=== PATIENT | male | born 1945 | race Caucasian/White ===

== ENCOUNTER 2017-12-08 06:36 | Day surgery (SDC) | payer OTHER, MEDICARE ==
--- NOTE | 2017-11-09 11:30 | HP ---
DATE OF ADMISSION: 12/03/2017 DATE OF DICTATION: 10/12/2017 DATE OF SURGERY: 10/25/2018 BRIEF HISTORY: This is a 72-year-old gentleman with a known right inguinal hernia. He has had this quite some time, and over this time in course the hernia has gotten larger, and now he has a mass in his right groin. The mass is occasionally tender. He wishes to have this hernia repaired. He has had no nausea, no vomiting, no change in bowel habits. PAST MEDICAL HISTORY: Significant for peptic ulcer disease, coronary artery disease, hypertension, hypercholesterolemia, eye disease, and depression/anxiety disorder. PAST SURGICAL HISTORY: Patient has had pins placed in the right forearm in the 50s. ALLERGIES: None. MEDICATION: Crestor, Centrum, aspirin, metoprolol, ramipril. SOCIAL HISTORY: Patient does not smoke nor drink. PHYSICAL EXAMINATION: Lungs: Clear. Heart: Regular rhythm. Abdomen: Soft. Nontender. Nondistended. He has a moderate to large right inguinal hernia. It is reducible in the supine position. The right scrotum and testicle is within normal limits. No obvious hernia noted on the left, however fair amount of laxity noted. IMPRESSION/PLAN: Right inguinal hernia, left floor laxity, cannot rule out left inguinal hernia: This is a 72-year-old gentleman who had a bout of severe sciatica and following this bout, he developed pain in the right groin. This brought his attention to the hernia, and he has had this for quite some time now. The hernia is fairly large and has gotten more symptomatic, and therefore he wished to have this repaired. Patient is slowly recovering from his sciatica. At this point, we have discussed the pros and cons of various surgical approaches, and the patient will be scheduled for a laparoscopic right inguinal hernia repair with mesh. At the time of laparoscopy, due to the fair amount of laxity in the left groin, the left groin will be examined, and if a small hernia is noted, will be repaired in the same setting. If no hernia is seen, a piece of mesh will be left in direct middle space for reinforcement. The indications, alternatives, complications of procedure discussed. Questions answered. Will plan to obtain written consent on the day of surgery. MARK BENSON M.D. [id number] cc: Roly Elizabeth
[2017-12-06 17:00] VITALS: BMI 23.5
[2017-12-08] MEDS ORDERED: LIDOCAINE HCL 2% 100 MG/5 ML DISP.SYRIN ONE (07:05)
[2017-12-08] MEDS ORDERED: ROCURONIUM BROMIDE 50 MG/5 ML VIAL ONE (07:05)
[2017-12-08] MEDS ORDERED: ONDANSETRON 4 MG/2 ML VIAL ONE (07:05)
[2017-12-08] MEDS ORDERED: fentaNYL CITRATE 250 MCG/5 ML VIAL ONE (07:05)
[2017-12-08] MEDS ORDERED: MIDAZOLAM HCL 2 MG/2 ML SINGLE DOSE VIAL ONE (07:05)
[2017-12-08] MEDS ORDERED: SUCCINYLCHOLINE CHLORIDE 200 MG/10 ML VIAL ONE (07:05)
[2017-12-08] MEDS ORDERED: PROPOFOL 20 ML ONE (07:05)
[2017-12-08] MEDS ORDERED: DEXAMETHASONE SOD PHOSPHATE 4 MG/1 ML VIAL ONE (07:05)
[2017-12-08] MEDS ORDERED: TAMSULOSIN HCL 0.4 MG CAP.ER.24H (FP) ONE (07:19)
[2017-12-08] MEDS ORDERED: ceFAZolin SODIUM 1 GM VIAL ONE ×2 (07:25→08:13)
[2017-12-08] MEDS ORDERED: ceFAZolin SODIUM 1 GM VIAL IVPB ONE (08:04)
[2017-12-08] MEDS ORDERED: GLYCOPYRROLATE 0.2 MG/1 ML VIAL ONE (08:49)
[2017-12-08] MEDS ORDERED: NEOSTIGMINE METHYLSULFATE 0.5 MG/ML - 10 ML MDV ONE (08:49)
[2017-12-08] MEDS ORDERED: ONDANSETRON 4 MG/2 ML VIAL IVPUSH PRN (09:08)
[2017-12-08] MEDS ORDERED: oxyCODONE HCL 5 MG TABLET PO PRN ×2 (09:08)
[2017-12-08] MEDS ORDERED: LACTATED RINGERS SOLUTION 1,000 ML IV SCH (09:15)
[2017-12-08 09:19] VITALS: TEMP 98
--- NOTE | 2017-12-08 12:25 | OP ---
DATE OF OPERATION: 12/08/2017 PREOPERATIVE DIAGNOSIS: Right inguinal hernia. POSTOPERATIVE DIAGNOSIS: Right pantaloon inguinal hernia, left indirect inguinal hernia. PROCEDURE: Laparoscopic bilateral herniorrhaphy with mesh. SURGEON: Reynold Wallace MD CHANNEL SPECIALIST: Pavan Ware MD ANESTHESIA: Dione Zhao MD (general) ESTIMATED BLOOD LOSS: Minimal. SPECIMENS: None. INDICATION FOR PROCEDURE: This is a 72-year-old gentleman with a known right inguinal hernia. He has had this for quite some time and now it has gotten fairly large, and he has a mass in his right lower quadrant consistent with this hernia. The mass is causing discomfort. He wishes to have this repaired. DESCRIPTION OF PROCEDURE: Patient identified and appropriately positioned on the operating room table. After placement of general anesthesia, he was prepped and draped in the usual sterile fashion with ChloraPrep. An infraumbilical incision was made, deepened to subcutaneous tissue. The fascia was divided sharply, the muscle split under direct vision and a dissector balloon followed by a structural balloon placed. Also under direct vision a suprapubic 11-mm port placed. The following structures on the right side were identified: Pubic tubercle, Charanjit ligament, inferior epigastric vessels, spermatic cord, and lateral abdominal wall. During this dissection patient was noted to have a direct inguinal hernia containing fat. This reduced back in the preperitoneal space. He had a moderate-sized indirect inguinal hernia sac which was reduced with blunt and sharp dissection. A 4.5 x 6 piece of Versatex mesh was stanley holed, placed through the superior port site. The mesh wrapped around the cord structures laterally to reconstruct the internal ring. Bladder remained anchored to the anterior abdominal wall and lateral abdominal wall. Medially, the mesh anchored to the anterior abdominal wall, Charanjit ligament. Upon completion of the right side, similar structures on the left side identified. On the left side the patient was noted to have no direct component. He had a small indirect hernia sac which was reduced back in the preperitoneal space with blunt dissection. Another 4.5 x 6 piece of Versatex mesh stanley holed, placed through the superior port site. The mesh wrapped around the cord structures laterally to reconstruct the internal ring. Laterally mesh anchored to the anterior abdominal wall, lateral abdominal wall. Medially, the mesh well overlapped in the midline , anchored to the anterior abdominal wall, pubic tubercle, and Charanjit ligament. All anterior abdominal wall and lateral abdominal wall anchors were placed under direct counter palpation. The anchoring system used was the Reliatack and the mesh sheet was Versatex. The fascia at both port sites was reapproximated with 0 Vicryl suture. All skin closed with 4-0 subcuticular Biosyn followed by Dermabond. At the conclusion of the case, sponge and needle counts correct. ATTESTATION: Brief operative note handwritten on the preprinted form. [facility] queried prior to giving any narcotics. Roly HERNANDEZ [id number] cc: Connor ROCHELLE
[2017-12-08 15:16] VITALS: BP 147/91; PULSE 78
== END 2017-12-08 15:15 | disposition home or self-care (01) ==
LOC: JASU-SURG 06:36
PROVIDERS: ATTEND Surgery
PROC: 0YUA4JZ Supplement Bilateral Inguinal Region with Synthetic Substitute, Percutaneous Endoscopic Approach (ICD-10-PCS; principal; 2017-12-08 08:00)
DX: K40.20 Bilateral inguinal hernia, without obstruction or gangrene, not specified as recurrent (principal)
CPT/HCPCS: 94760